=== PATIENT | male | born 1995 | race Asian ===

== ENCOUNTER 2020-04-14 18:52 | Inpatient (IN) | payer BC ==
[~2020-04-14] VITALS: Ht 177.8 cm; Wt 78.0 kg
[2020-04-14 20:13] LABS: MUCOUS Present /lpf; PH 5 (5-8); SQUAMOUS EPITHELIAL 0-2 /hpf; URINE APPEARANCE Cloudy; URINE BACTERIA Rare /hpf; URINE BILIRUBIN Negative (NEGATIVE); URINE BLOOD 3+ (NEGATIVE); URINE COLOR Amber; URINE GLUCOSE 3+ (NEGATIVE); URINE KETONE Trace (NEGATIVE); URINE LEUKOCYTE ESTERASE Negative (NEGATIVE); URINE NITRATE Negative (NEGATIVE); URINE PROTEIN(semi-quant) 3+ (NEGATIVE); URINE RBC 20-50 /hpf; URINE UROBILINOGEN Negative (NEGATIVE)
[2020-04-14 20:15] LABS: COLLECTION METHOD CLEAN CATCH
[2020-04-14 20:23] LABS: BASO % 0.1 % (0.0-2.0); GRAN # 12.4 (1.4-6.5); GRAN % 87.9 % (42.2-75.2); HEMATOCRIT 47.8 % (42.0-52.0); HEMOGLOBIN 16.9 g/dl (13.5-18.0); LYMPH # 0.5 (1.2-3.4); LYMPH % 3.6 % (20.0-51.0); MEAN CELL VOLUME 91 fl (80.0-100.0); MEAN CORPUSCULAR HEMOGLOBIN 32 pg (27.0-31.0); MEAN CORPUSCULAR HGB CONC 35 g/dl (33.0-37.0); MEAN PLATELET VOLUME 9.7 fl (7.4-10.4); MONO # 1.1 (0.1-0.6); MONO % 7.9 % (1.7-9.3); PLATELET COUNT 203 K/mm3 (130-400); RED BLOOD COUNT 5.24 M/mm3 (4.20-5.60)
[2020-04-14 20:32] LABS: ALBUMIN 4.3 gm/dL (3.5-5.0); BILIRUBIN,TOTAL 1.1 mg/dL (0.0-1.0); CALCIUM 9.3 mg/dL (8.4-10.2); CREATININE, serum 0.9 (0.66-1.25); POTASSIUM 3.9 mmol/L (3.4-5.0); TOTAL PROTEIN 7.6 gm/dL (6.4-8.2)
[2020-04-15 02:16] VITALS: BP 144/92; PULSE 122; TEMP 98
[2020-04-15 04:16] LABS: INR 1.4 (0.8-3.0); PROTHROMBIN TIME 15.2 SECONDS (9.7-12.8)
[2020-04-15 04:18] LABS: ALCOHOL(ethanol),MEDICAL < 10 mg/dL; MAGNESIUM 1.6 mg/dL (1.6-2.3)
--- NOTE | 2020-04-15 06:39 | NUR ---
Pt arrived to the floor. Reports pain 5/10 to abdomen, states he feels he needs pain meds when it reaches a 6/10. No N/V. Requesting water. Believes that the IVF make the pain worse. Course of fluids and NPO status reviewed with patient. No needs at this time.
[2020-04-15 06:50] LABS: COLLECTION METHOD CLEAN CATCH
[2020-04-15 07:03] LABS: MUCOUS Present /lpf; PH 5 (5-8); SQUAMOUS EPITHELIAL None Seen /hpf; URINE APPEARANCE Hazy; URINE BACTERIA None Seen /hpf; URINE BILIRUBIN Negative (NEGATIVE); URINE BLOOD 3+ (NEGATIVE); URINE COLOR Yellow; URINE GLUCOSE 2+ (NEGATIVE); URINE KETONE Negative (NEGATIVE); URINE LEUKOCYTE ESTERASE Negative (NEGATIVE); URINE NITRATE Negative (NEGATIVE); URINE PROTEIN(semi-quant) 2+ (NEGATIVE); URINE RBC 20-50 /hpf; URINE UROBILINOGEN Negative (NEGATIVE)
[2020-04-15 07:27] LABS: TRICYCLIC ANTIDEPRESS URINE NEGATIVE
[2020-04-15 07:35] VITALS: BP 149/86; PULSE 133; TEMP 98.9
--- NOTE | 2020-04-15 07:50 | NUR ---
Assessment complete. Patient laying in bed resting on entry. Per tele HR was in the 140s, patient stated he had just been up to the bathroom. Reports abdominal pain only when moving around and was tender to palpation. He was cinversational and cooperative with assessment. IV fluids continue to run at this time. Pt denies other needs at this time. Call light is in reach. Will continue to monitor.
[2020-04-15 07:53] LABS: BASO % 0.2 % (0.0-2.0); GRAN # 11.1 (1.4-6.5); HEMATOCRIT 43.6 % (42.0-52.0); HEMOGLOBIN 15.1 g/dl (13.5-18.0); LYMPH # 0.4 (1.2-3.4); LYMPH % 3.4 % (20.0-51.0); MEAN CELL VOLUME 93 fl (80.0-100.0); MEAN CORPUSCULAR HEMOGLOBIN 32 pg (27.0-31.0); MEAN CORPUSCULAR HGB CONC 35 g/dl (33.0-37.0); MEAN PLATELET VOLUME 10.3 fl (7.4-10.4); MONO # 0.9 (0.1-0.6); MONO % 6.9 % (1.7-9.3); PLATELET COUNT 158 K/mm3 (130-400); RED BLOOD COUNT 4.67 M/mm3 (4.20-5.60); REDCELL DISTRIBUTION WIDTH-CV 15.5 % (11.5-14.5)
[2020-04-15 08:01] LABS: ALBUMIN 3.3 gm/dL (3.5-5.0); BILIRUBIN,TOTAL 1.3 mg/dL (0.0-1.0); CALCIUM 7.7 mg/dL (8.4-10.2); CREATININE, serum 0.8 (0.66-1.25); POTASSIUM 3.8 mmol/L (3.4-5.0); TOTAL PROTEIN 5.9 gm/dL (6.4-8.2)
--- NOTE | 2020-04-15 10:14 | NUR ---
[place] Supervisor met with the patient to complete initial intake. The patient lives in [place] with his family. The patient denies DME use and is independent. The patient does not have a PCP at this time and the patient reveives medications from [facility] in [place]. The patient does not have advanced directives. His parents are living. The patient plans to return home at discharge with his father providing transportation. The patient was agreeable to setting up a PCP. ARINA contacted the [facility] and left message for the nurse to inquire if either Dr. Pulido or Dr. Aguilar are taking new patients. ARINA collaborated the above information with the patient's nurse.
[2020-04-15 11:35] VITALS: BP 140/95; PULSE 131; TEMP 98
[2020-04-15 15:50] VITALS: BP 127/84; PULSE 134; TEMP 99
--- NOTE | 2020-04-15 17:34 | NUR ---
Patient has had an uneventful day. He has remained NPO per orders for bowel rest at thsi time and is aware and agrees to this. I informed him that as his pain improves he may be able to start eating and drinking. Patient has recieved PRN pain meds once today but does not like to take it often and will refuse it despite pain, he is aware that it is available. IV site remains CD&I, IVF continue to infuse. NO other needs at this time. CAll light is in reach.
--- NOTE | 2020-04-15 20:30 | NUR ---
Initial shift assessment done-- states abd pain 10/18 at this time, abd is firm with faint bowel sounds-- will give Dilaudid IV as ordered, Tele on-tachy, especially when pt up to bathroom, NPO, IV fluids of NS at 125cc/hr
[2020-04-15 20:44] VITALS: BP 153/89; PULSE 138; TEMP 98.8
[2020-04-16] VITALS (7 sets, daily range): BP systolic 143–158; BP diastolic 83–96; PULSE 130–140; TEMP 98.1–100
--- NOTE | 2020-04-16 03:30 | NUR ---
Pt up to bathroom- Tele called HR in the 140-150,s,, back to bed, HR back to 138-140/min, temp 99.5- patient states and pain 12/19-appears to be in alot of pain- grimacing, short/shallow breathing- Suni DOTY called to inform--will increase Dilaudid to 0.5mg every 2 hrs as needed--
--- NOTE | 2020-04-16 04:53 | NUR ---
Up to bathroom,, had a liquid stool, pt states thats the first in 2 days
[2020-04-16 07:52] LABS: HEMATOCRIT 39.9 % (42.0-52.0); HEMOGLOBIN 13.5 g/dl (13.5-18.0); MEAN CELL VOLUME 95 fl (80.0-100.0); MEAN CORPUSCULAR HEMOGLOBIN 32 pg (27.0-31.0); MEAN CORPUSCULAR HGB CONC 34 g/dl (33.0-37.0); MEAN PLATELET VOLUME 10.3 fl (7.4-10.4); PLATELET COUNT 151 K/mm3 (130-400); RED BLOOD COUNT 4.21 M/mm3 (4.20-5.60); REDCELL DISTRIBUTION WIDTH-CV 15.4 % (11.5-14.5)
[2020-04-16 07:54] LABS: ALBUMIN 3.1 gm/dL (3.5-5.0); BILIRUBIN,TOTAL 1.5 mg/dL (0.0-1.0); CALCIUM 7.6 mg/dL (8.4-10.2); CREATININE, serum 0.83 (0.66-1.25); POTASSIUM 3.3 mmol/L (3.4-5.0); TOTAL PROTEIN 5.7 gm/dL (6.4-8.2)
--- NOTE | 2020-04-16 09:03 | NUR ---
Assessment complete. Patient sitting up in bed about to eat breakfast, clear liquid diet, per Dr. Hernadez. States that his pain is controlled at this time. States that he feels pretty good this morning. IV site remains in tact. No other needs at this time. Call light is in reach. Will continue to monitor.
[2020-04-16 09:16] LABS: BAND 12 % (0-10); EOSINOPHIL 2 % (0-4); LYMPHOCYTE 2 % (20.0-51.0); NEUTROPHILS 77 % (42.0-75.2)
[2020-04-16 09:19] LABS: PLATELET ESTIMATE NORMAL (NORMAL)
[2020-04-16 09:20] LABS: ANISOCYTOSIS 1+
--- NOTE | 2020-04-16 18:19 | NUR ---
Patient has had an uneventful shift. He has been more comfortable tosday than he was yesterday and overnight. PRN pain medication given only a few times through the day. He states that he feels the PO [place] was not as effective in managing his pain. He tolerated small portion of the clear liquid diet this morning but refused lunch due to some mild pain so I did not andvance his diet today. Continuing to monitor closely. Call light is in reach.
--- NOTE | 2020-04-16 20:20 | NUR ---
Patient assessed at this time. Alert and oriented x 4, and able to make needs known. Reported level 3 pain to abdomen. Patient having facial grimacing and guarding with any movement. Given PRN Dilaudid as requested. Declined PRN [place]. Peripheral IV to right AC. Denies SOB and dsypnea. LS CTA. Respirations even and unlabored. HR tachy, 130s. Telemetry in place. Capillary refill less than 3 seconds. Non-tenting skin turgor. BSAx4. Pain to abdomen. No edema. Voices no questions, needs, or concerns at this time. Resting in bed with call light within reach.
--- NOTE | 2020-04-16 23:41 | NUR ---
Patient complaining of pain to abdomen. Given PRN Dilaudid as requested. Called and updated Katja on patient: low grade fevers, 99-100, HR remains in the 130s. New order received to give a one time dose of Ativan, and to check labs. Called lab and labs are being obtained. Given medications. Voices no questions, needs, or concerns at this time. Resting in bed with call light within reach.
[2020-04-16 23:52] LABS: HEMATOCRIT 41.6 % (42.0-52.0); HEMOGLOBIN 13.8 g/dl (13.5-18.0); MEAN CELL VOLUME 95 fl (80.0-100.0); MEAN CORPUSCULAR HEMOGLOBIN 32 pg (27.0-31.0); MEAN CORPUSCULAR HGB CONC 33 g/dl (33.0-37.0); MEAN PLATELET VOLUME 9.7 fl (7.4-10.4); PLATELET COUNT 202 K/mm3 (130-400); RED BLOOD COUNT 4.36 M/mm3 (4.20-5.60); REDCELL DISTRIBUTION WIDTH-CV 15.4 % (11.5-14.5)
[2020-04-17 00:31] LABS: BAND 9 % (0-10); EOSINOPHIL 1 % (0-4); LYMPHOCYTE 10 % (20.0-51.0); NEUTROPHILS 72 % (42.0-75.2); PLATELET ESTIMATE NORMAL (NORMAL)
--- NOTE | 2020-04-17 03:45 | NUR ---
Patient complaining of pain to abdomen. Given PRN Dilaudid as requested for pain at this time.
[2020-04-17 04:58] VITALS: BP 149/97; PULSE 134; TEMP 99.5
--- NOTE | 2020-04-17 05:21 | NUR ---
Patient has received PRN Dilaudid during the night as requested. Received a one time dose of Ativan as well. Received scheduled Metoprolol per orders. HR has stayed 120s-130s throughout this shift. Voices no questions, needs, or concerns at this time. Resting in bed with call light within reach.
--- NOTE | 2020-04-17 07:01 | NUR ---
Patient complaining of level 4 pain to abdomen. Given PRN Dilaudid as requested for pain at this time.
[2020-04-17 07:43] VITALS: BP 151/90; PULSE 129; TEMP 99.7
[2020-04-17 07:54] LABS: HEMATOCRIT 37.8 % (42.0-52.0); HEMOGLOBIN 12.6 g/dl (13.5-18.0); MEAN CELL VOLUME 97 fl (80.0-100.0); MEAN CORPUSCULAR HEMOGLOBIN 32 pg (27.0-31.0); MEAN CORPUSCULAR HGB CONC 33 g/dl (33.0-37.0); MEAN PLATELET VOLUME 10.1 fl (7.4-10.4); PLATELET COUNT 195 K/mm3 (130-400); RED BLOOD COUNT 3.91 M/mm3 (4.20-5.60); REDCELL DISTRIBUTION WIDTH-CV 15.4 % (11.5-14.5)
[2020-04-17 08:18] LABS: CALCIUM 7.9 mg/dL (8.4-10.2); CREATININE, serum 0.83 (0.66-1.25); POTASSIUM 3.2 mmol/L (3.4-5.0)
--- NOTE | 2020-04-17 09:00 | NUR ---
Assessment complete. Pt resting in bed, A&O x 4. Pt reports pain to abd 3 out of 10 that worsens with movement. IVF's infusing per orders through right AC without s/s of complications. Physical assessment otherwise unremarkable. No further needs reported. Call light in reach.
--- NOTE | 2020-04-17 10:03 | NUR ---
Initial visit; Patient thanked Review Specialist for stopping and introducing herself. Review Specialist let patient know she is available when needed and offered Blessings.
[2020-04-17 11:51] VITALS: BP 158/91; PULSE 130; TEMP 99
[2020-04-17 14:14] LABS: CLOSTRIDIUM DIFF A/B NEG; CLOSTRIDIUM DIFF A/B INTERP No C.diff present
[2020-04-17 16:08] VITALS: BP 147/95; PULSE 133; TEMP 100.3
--- NOTE | 2020-04-17 17:13 | NUR ---
Provider notified of pt's elevated temp, heart rate and BP along with lower appetite. Medications reviewed and orders being placed.
--- NOTE | 2020-04-17 18:54 | NUR ---
Report given to MAURY Mcleod. Pt resting in bed, reports to have continued diarrhea throughout shift with pain remaining around 3-5 in the abd, denies the need for pain medication at this time. No further needs reported. Call light in reach.
--- NOTE | 2020-04-17 19:55 | NUR ---
Patient assessed at this time. Alert and oriented x 4, and able to make needs known. Patient complaining of level 6 pain to abdomen. Given PRN Dilaudid as requested for pain. Peripheral IV to right AC with NS runnign at 75 per orders, as well as ABX per orders. Denies having SOB and dsypnea. LS CTA. Respirations even and unlabored. Tachycardia. Telemetry in place: sinus tachycardia. Given scheduled Metoprolol per orders. HR as been staying in the 120s-140s. Denies chest pain and discomfort. Capillary refill less than 3 seconds. Non-tenting skin turgor. BSAx4. Abdomen soft and non-tender. Continues to have diarrhea. Patient denies nausea, but refused dinner tonight. Did state that he ate lunch and pain has gotten worse since he ate. No edema. Voices no questions, needs, or concerns at this time. Resting in bed with call light within reach. Encouraged to call if having pain. Voiced understanding.
[2020-04-17 20:37] VITALS: BP 160/82; PULSE 136; TEMP 99.1
--- NOTE | 2020-04-17 23:03 | NUR ---
Patient given PRN Dilaudid at this time for abdominal pain, rated as a 5. Patient also stating that IV site to right AC was bothering him. No redness, swelling, warmth, or leaking noted to IV site. Offered to start new IV in different spot, and patient agreed. New IV started to left forearm. IV to right AC taken out. Voices no further questions, needs, or concerns at this time. Resting in bed with call light within reach.
[2020-04-17 23:54] VITALS: BP 145/92; PULSE 117; TEMP 99.1
--- NOTE | 2020-04-18 03:05 | NUR ---
Patient given PRN Dilaudid for pain as requested at this time.
[2020-04-18 04:52] VITALS: BP 154/85; PULSE 129; TEMP 99.4
--- NOTE | 2020-04-18 05:56 | NUR ---
Patient has received Dilaudid three times so far this shift. Patient resting in bed with call light within reach. Voices no questions, needs, or concerns at this time.
--- NOTE | 2020-04-18 06:12 | NUR ---
Patient given PRN Dilaudid as requested for pain at this time to abdomen.
[2020-04-18 07:20] VITALS: BP 153/95; PULSE 126; TEMP 99.7
[2020-04-18 07:22] LABS: HEMOGLOBIN 12.3 g/dl (13.5-18.0); MEAN CELL VOLUME 94 fl (80.0-100.0); MEAN CORPUSCULAR HEMOGLOBIN 32 pg (27.0-31.0); MEAN CORPUSCULAR HGB CONC 34 g/dl (33.0-37.0); MEAN PLATELET VOLUME 9.8 fl (7.4-10.4); PLATELET COUNT 239 K/mm3 (130-400); REDCELL DISTRIBUTION WIDTH-CV 15.2 % (11.5-14.5)
[2020-04-18 07:32] LABS: HEMATOCRIT 35.8 % (42.0-52.0)
[2020-04-18 07:45] LABS: CALCIUM 8.1 mg/dL (8.4-10.2); CREATININE, serum 0.8 (0.66-1.25)
[2020-04-18 07:53] LABS: POTASSIUM 2.9 mmol/L (3.4-5.0)
--- NOTE | 2020-04-18 08:52 | NUR ---
Assessment complete. Patient resting in bed on entry. Reports that he feels okay but that he has gotten worse since the last time I saw him. Repoted pain at a 5, PRN pain medications provided per request. Abdomen is distended and firm, sensitive to palpation. Patient is aware of diet change. IV site is CD&I, Potassium, fluids, and zosyn running at this time. Will continue to monitor. CAll light is in reach.
[2020-04-18 11:22] VITALS: BP 142/88; PULSE 125; TEMP 100.1
[2020-04-18 15:41] VITALS: BP 162/98; PULSE 128; TEMP 99.7
--- NOTE | 2020-04-18 18:17 | NUR ---
Patient has had an uneventful shift. Pain medications were given when requested. Pt was up to shower independently and did well. IV site remains CD&I. IV potassium was replaced through the day. Minimal needs. Call light is in reach.
--- NOTE | 2020-04-18 20:00 | NUR ---
Patient assessed at this time. Alert and oriented x 4, and able to make needs known. Given PRN Dilaudid for pain as requested. Perpheral IV to left forearm. Denies SOB and dyspnea. LS CTA. Respirations even and unlabored. HR-tachycardia. Telemetry in place. Capillary refill less than 3 seconds. Non-tenting skin turgor. BSAx4. Continues to have diarrhea. No edema. Voices no questions, needs, or concerns at this time. Resting in bed with call light within reach.
[2020-04-18 21:12] VITALS: BP 154/87; PULSE 122; TEMP 99
--- NOTE | 2020-04-18 22:01 | NUR ---
Called with c/o generalized abdominal pain-rating pain 6/10 on pain scale-described as sharp stabbing pain. Dilaudid given per dr freire.
--- NOTE | 2020-04-18 23:00 | NUR ---
Patient given PRN Dilaudid for pain around 2200. Potassium recheck was 3.1. Potassium to be replaced per protocol, and started IV replacement at this time. Will recheck in the morning per protocol.
--- NOTE | 2020-04-19 | NUR ---
Patient given PRN Dilaudid for pain as requested at this time.
[2020-04-19 00:40] VITALS: BP 142/87; PULSE 118; TEMP 99.4
[2020-04-19 04:30] VITALS: BP 142/89; PULSE 121; TEMP 99.8
--- NOTE | 2020-04-19 05:25 | NUR ---
Patient completed potassium replacement per protocol. Will recheck labs this morning. Has been receiving PRN Dilaudid every two hours this shift for pain to abdomen. States that pain does not seem to be getting better, only worse. Voices no further questions, needs, or concerns at this time. Resting in bed with call light within reach.
[2020-04-19 07:26] VITALS: BP 148/88; PULSE 127; TEMP 98.1
[2020-04-19 08:44] LABS: HEMATOCRIT 37.5 % (42.0-52.0); HEMOGLOBIN 12.6 g/dl (13.5-18.0); MEAN CELL VOLUME 94 fl (80.0-100.0); MEAN CORPUSCULAR HEMOGLOBIN 32 pg (27.0-31.0); MEAN CORPUSCULAR HGB CONC 34 g/dl (33.0-37.0); MEAN PLATELET VOLUME 9.3 fl (7.4-10.4); PLATELET COUNT 295 K/mm3 (130-400); RED BLOOD COUNT 3.99 M/mm3 (4.20-5.60); REDCELL DISTRIBUTION WIDTH-CV 15.5 % (11.5-14.5)
[2020-04-19 08:51] LABS: ALBUMIN 3.5 gm/dL (3.5-5.0); BILIRUBIN,TOTAL 1.4 mg/dL (0.0-1.0); CALCIUM 8.6 mg/dL (8.4-10.2); CREATININE, serum 0.76 (0.66-1.25); POTASSIUM 3.4 mmol/L (3.4-5.0); TOTAL PROTEIN 6.7 gm/dL (6.4-8.2)
[2020-04-19 10:43] LABS: BAND 5 % (0-10); LYMPHOCYTE 11 % (20.0-51.0); NEUTROPHILS 78 % (42.0-75.2); PLATELET ESTIMATE NORMAL (NORMAL)
[2020-04-19 13:27] VITALS: BP 147/85; PULSE 121; TEMP 98.7
[2020-04-19 16:14] VITALS: BP 138/87; PULSE 128; TEMP 98.8
--- NOTE | 2020-04-19 17:30 | NUR ---
Pt resting in bed, reports pain to left abd increased sooner this time and requests another dose of pain medication which is administered per orders. IVF's continue to infuse without s/s of complications. Pt refusing to eat any supper d/t the pain and diarrhea anytime he eats. No further needs reported. Call light in reach.
--- NOTE | 2020-04-19 19:35 | NUR ---
Patient assessed at this time. Alert and oriented x 4, and able to make needs known. Patient's Potassium replacement started per protocol. Reports level 5 pain to abdomen. Given PRN Dilaudid. Offered to give PRN [place] with Dilaudid but declined [place]. Peripheral IV to left forearm. Denies SOB and dsypnea. LS CTA. Repirations even and unlabored. HR-tachycardia. Telemetry in place. Capillary refill less than 3 seconds. Non-tenting skin turgor. BSAx4. No edema. Voices no questions, needs, or concerns at this time. Resting in bed with call light within reach.
[2020-04-19 20:41] VITALS: BP 146/87; PULSE 126; TEMP 99.7
--- NOTE | 2020-04-19 22:37 | NUR ---
Patient given PRN Dilaudid as requested for pain at this time.
[2020-04-20] VITALS (7 sets, daily range): BP systolic 131–150; BP diastolic 78–88; PULSE 113–127; TEMP 98.5–99.5
--- NOTE | 2020-04-20 02:14 | NUR ---
Called with c/o pain to abdomen-rating pain 7/10 on pain scale-described as constant throbbing with intermittent stabbing pains. Dilaudid given per dr freire. Will monitor.
--- NOTE | 2020-04-20 05:21 | NUR ---
Patient's potassium replaced during the night. Will recheck levels this morning. Patient has received PRN Dilaudid as requested during the night for pain to abdomen . Offered PRN [place] but declined. Voices no questions, needs, or concerns at this time. Resting in bed with call light within reach.
--- NOTE | 2020-04-20 07:10 | NUR ---
Report with MAURY Mcleod. Pt requesting pain medication which is administered by night court magistrate nurse. IVF's infusing per orders. No further needs reported. Call light in reach.
[2020-04-20 07:40] LABS: HEMOGLOBIN 12.6 g/dl (13.5-18.0); MEAN CELL VOLUME 95 fl (80.0-100.0); MEAN CORPUSCULAR HEMOGLOBIN 32 pg (27.0-31.0); MEAN CORPUSCULAR HGB CONC 34 g/dl (33.0-37.0); MEAN PLATELET VOLUME 9.6 fl (7.4-10.4); PLATELET COUNT 333 K/mm3 (130-400); REDCELL DISTRIBUTION WIDTH-CV 15.7 % (11.5-14.5)
[2020-04-20 07:44] LABS: HEMATOCRIT 36.9 % (42.0-52.0)
[2020-04-20 07:57] LABS: ALBUMIN 3.3 gm/dL (3.5-5.0); BILIRUBIN,TOTAL 1.4 mg/dL (0.0-1.0); CALCIUM 8.5 mg/dL (8.4-10.2); CREATININE, serum 0.8 (0.66-1.25); MAGNESIUM 2.5 mg/dL (1.6-2.3); PHOSPHOROUS 2.4 mg/dL (2.5-4.5); POTASSIUM 3.7 mmol/L (3.4-5.0); TOTAL PROTEIN 6.6 gm/dL (6.4-8.2)
[2020-04-20 09:44] LABS: BAND 9 % (0-10); LYMPHOCYTE 18 % (20.0-51.0); NEUTROPHILS 69 % (42.0-75.2); PLATELET ESTIMATE NORMAL (NORMAL)
[2020-04-20 09:45] LABS: ANISOCYTOSIS 1+
[2020-04-20 15:32] LABS: COLLECTION METHOD CLEAN CATCH
[2020-04-20 16:21] LABS: BUDDING YEAST Present /hpf; PH 5 (5-8); SQUAMOUS EPITHELIAL None Seen /hpf; URINE APPEARANCE Hazy; URINE BACTERIA Rare /hpf; URINE BILIRUBIN Negative (NEGATIVE); URINE BLOOD 3+ (NEGATIVE); URINE COLOR Amber; URINE GLUCOSE 2+ (NEGATIVE); URINE KETONE 1+ (NEGATIVE); URINE LEUKOCYTE ESTERASE Negative (NEGATIVE); URINE NITRATE Negative (NEGATIVE); URINE PROTEIN(semi-quant) 2+ (NEGATIVE); URINE RBC >50 /hpf; URINE UROBILINOGEN Negative (NEGATIVE)
--- NOTE | 2020-04-20 17:40 | NUR ---
Pt has increased appetite and intake today with less urgency in diarrhea but pain still increases with certain foods and pt prefers to use IV pain medication with oral medication and not oral medication alone. No further needs reported. Call light in reach.
--- NOTE | 2020-04-20 20:16 | NUR ---
PT AOX4, PLEASANT, C/O TENDERNESS IN CENTRAL ABD AND RADIATES TO L SIDE. PT RATING PAIN AT 3/10 AT THIS TIME. PT STATED HE DID NOT WANT TO BE WOKEN UP IF SLEEPING TO ASK FOR PAIN NUMBER AND THAT HE WOULD ASK FOR PAIN MEDS WHEN NEEDED. PT ASSESSMENT PERFORMED, VITALS REVIEWED, CALL LIGHT WITHIN REACH, WATER AT BEDSIDE, DENIES ANY OTHER NEEDS AT THIS TIME.
--- NOTE | 2020-04-21 00:22 | NUR ---
PT REQUESTING PAIN MEDICATION WHEN AVALIABLE, AWOKE WHEN ENTERING ROOM, SAYS PAIN IS "GOOD" RIGHT NOW.
[2020-04-21 03:26] VITALS: BP 135/81; PULSE 115; TEMP 98.5
--- NOTE | 2020-04-21 05:20 | NUR ---
PT REQUESTING PAIN MEDS WHEN DUE, REFUSED JOSE LUIS IN AM SAYING "THAT STUFF DOESN'T WORK, ILL TALK TO MY DOCTOR ABOUT IT TODAY". NO OTHER NEEDS AT THIS TIME. UNEVENTFUL SHIFT, OVERALL WOKEN FREQUENTLY WHEN CHECKING ON PT.
[2020-04-21 07:22] LABS: HEMOGLOBIN 12.2 g/dl (13.5-18.0); MEAN CELL VOLUME 92 fl (80.0-100.0); MEAN CORPUSCULAR HEMOGLOBIN 32 pg (27.0-31.0); MEAN CORPUSCULAR HGB CONC 35 g/dl (33.0-37.0); MEAN PLATELET VOLUME 9.4 fl (7.4-10.4); PLATELET COUNT 405 K/mm3 (130-400); RED BLOOD COUNT 3.82 M/mm3 (4.20-5.60); REDCELL DISTRIBUTION WIDTH-CV 15.6 % (11.5-14.5)
[2020-04-21 07:27] LABS: HEMATOCRIT 35.2 % (42.0-52.0)
[2020-04-21 07:28] LABS: CALCIUM 8.5 mg/dL (8.4-10.2); CREATININE, serum 0.77 (0.66-1.25); POTASSIUM 3.5 mmol/L (3.4-5.0)
[2020-04-21 08:25] LABS: BAND 12 % (0-10); LYMPHOCYTE 5 % (20.0-51.0); METAMYELOCYTE 1 % (0-0); NEUTROPHILS 77 % (42.0-75.2); PLATELET ESTIMATE INCREASED (NORMAL)
[2020-04-21 08:44] VITALS: BP 142/86; PULSE 125; TEMP 98.1
--- NOTE | 2020-04-21 10:43 | NUR ---
[place] Machine Tender attended clinical rounds with the team. The patient's diet is advancing.
--- NOTE | 2020-04-21 11:20 | NUR ---
Pt assessment completed and charted, medications administered per jun. Pt A&O, independent in room, on room air, breathing is even and unlabored. Pt states he has pain to LLQ of abdomen, rating pain 2-3/10, requesting only dilaudid, states "the white pill doesn't do anything for me". Hospitalist aware, med changes made. Pt doesn't appear to be in pain upon entry, resp rate increases when talking about pain. Pt does have grimacing upon auscultation of abdomen to LLQ. BS active X4. INT IV flushes w/o issue. Dilaudid administered per jun. No further needs expressed at this time.
[2020-04-21 12:14] VITALS: BP 142/81; PULSE 119; TEMP 98.4
--- NOTE | 2020-04-21 13:35 | NUR ---
Zinc Etcher met with the patient. He was eating lunch. His plan is to return home at discharge when able.
--- NOTE | 2020-04-21 15:16 | NUR ---
Pt down for ct of abd this morning, back, showered. Pt doesn't appear to be in pain or distress. Pt called out for pain medication, "the pill". Med changes were made, [place] dose increased, administered per jun. Pt rating pain 07/19. Pt showered, linens changed. No further needs expressed at this time.
[2020-04-21 15:38] VITALS: BP 141/83; PULSE 118; TEMP 99.4
--- NOTE | 2020-04-21 17:17 | NUR ---
1700 MEDS GIVEN AT 1500 PRIOR TO TRANSFER.
[2020-04-21 19:13] VITALS: BP 140/76; PULSE 118; TEMP 98.5
--- NOTE | 2020-04-21 21:00 | NUR ---
PATIENT RESTING IN BED WITH COMPLAINTS OF PAIN TO HIS ABDOMEN. NORCO GIVEN PER ORDERS. POTASSIUM REPLACED. NO OTHER NEEDS AT THIS TIME. CALL LIGHT IS WITHIN REACH.
[2020-04-21 23:54] VITALS: BP 143/84; PULSE 114; TEMP 98.3
[2020-04-22 04:00] VITALS: BP 130/73; PULSE 101; TEMP 98.3
[2020-04-22 07:53] LABS: HEMOGLOBIN 12.3 g/dl (13.5-18.0); MEAN CELL VOLUME 95 fl (80.0-100.0); MEAN CORPUSCULAR HEMOGLOBIN 32 pg (27.0-31.0); MEAN CORPUSCULAR HGB CONC 34 g/dl (33.0-37.0); MEAN PLATELET VOLUME 9.6 fl (7.4-10.4); PLATELET COUNT 474 K/mm3 (130-400); RED BLOOD COUNT 3.81 M/mm3 (4.20-5.60); REDCELL DISTRIBUTION WIDTH-CV 15.9 % (11.5-14.5)
[2020-04-22 07:56] LABS: HEMATOCRIT 36.2 % (42.0-52.0)
[2020-04-22 08:11] LABS: ALBUMIN 3.3 gm/dL (3.5-5.0); BILIRUBIN,TOTAL 0.9 mg/dL (0.0-1.0); CALCIUM 8.8 mg/dL (8.4-10.2); CREATININE, serum 0.9 (0.66-1.25); MAGNESIUM 2.6 mg/dL (1.6-2.3); POTASSIUM 3.6 mmol/L (3.4-5.0); TOTAL PROTEIN 6.6 gm/dL (6.4-8.2)
--- NOTE | 2020-04-22 08:40 | NUR ---
Patient in bed resting. Alert and oriented x 3. Assessment complete. Patient Denies pain at this time. Tolerating diet. Denies further needs at this time.
[2020-04-22 08:53] LABS: BAND 28 % (0-10); EOSINOPHIL 3 % (0-4); LYMPHOCYTE 7 % (20.0-51.0); METAMYELOCYTE 1 % (0-0); NEUTROPHILS 57 % (42.0-75.2); PLATELET ESTIMATE INCREASED (NORMAL)
[2020-04-22 08:57] VITALS: BP 131/77; PULSE 109; TEMP 98.3
[2020-04-22] MEDS ORDERED: DIFLUCAN200 MG PO (10:43)
[2020-04-22] MEDS ORDERED: NORCO 325 MG-7.1 TAB PO (10:44)
[2020-04-22] MEDS ORDERED: LOPRESSOR 225 MG/TAB PO (10:44)
[2020-04-22] MEDS ORDERED: ZOFRAN ODT4 MG PO (10:45)
[2020-04-22 10:54] VITALS: BP 116/57; PULSE 108; TEMP 98.1
--- NOTE | 2020-04-22 12:42 | NUR ---
Ict Teacher notified that patient is discharging this afternoon and needs to be set up with a primary care office. ARINA contacted Danay Melo RN-CM at [facility] and had patient set up with Dr. Veronica Harrington. Appointment scheduled for 04/29/20 @ 0845. ARINA provided appointment to embossing unit operator.
--- NOTE | 2020-04-22 13:05 | NUR ---
Discharge education provided to patient. Educated on all new medications and medication safety. Educated on follow up appointments and when to call physicians. Denies pain or further needs at this time. Patient ambulated out with surgical staff.
== END 2020-04-22 13:10 | disposition home or self-care (01) | DRG 871 ==
LOC: COL.ER 18:52 → MEDICAL 22:48 → SURG 04-21 16:23
PROVIDERS: Emergency Medicine; Nurse Practitioner Family; Nurse Practitioner Primary Care; Physician Assistant; ADMIT Hospitalist
DX: A41.9 Sepsis, unspecified organism (principal); K85.20 Alcohol induced acute pancreatitis without necrosis or infection; J90 Pleural effusion, not elsewhere classified; E87.1 Hypo-osmolality and hyponatremia; B37.49 Other urogenital candidiasis; R65.20 Severe sepsis without septic shock; K76.0 Fatty (change of) liver, not elsewhere classified; R74.01 Elevation of levels of liver transaminase levels; Z20.822 Contact with and (suspected) exposure to COVID-19; R31.9 Hematuria, unspecified; E87.6 Hypokalemia; R19.7 Diarrhea, unspecified; I10 Essential (primary) hypertension; E83.39 Other disorders of phosphorus metabolism; F17.200 Nicotine dependence, unspecified, uncomplicated; R00.0 Tachycardia, unspecified
CPT/HCPCS: 99222-AI; 99231-AI; 99232-AI; 99239; J1170; J1650; J2060; J2405; J2543; J3480; J7030; Q9967